=== PATIENT | male | born 1990 | race Caucasian/White ===

== ENCOUNTER 2017-07-17 09:41 | Emergency (ER) | payer BC, SELFPAY | END 2017-07-17 11:46 | disposition home or self-care (01) | PROVIDERS: Emergency Provider Nurse Practitioner Family; Family Provider Family Medicine; Visit Provider Nurse Practitioner Family | DX: A08.4 Viral intestinal infection, unspecified (principal) | CPT/HCPCS: 96372; 99201 ==

== ENCOUNTER 2022-01-09 09:15 | Emergency (ER) | payer OTHER, SELFPAY ==
[2022-01-09 09:30] VITALS: BP 164/80; PULSE 72; RESP 18; TEMP 36.8; O2SAT 99; BMI 28.8
--- NOTE | 2022-01-09 09:48 | HMH.EDUTC ---
[facility] [place] Disposition Clinical Impression: Need for Tdap vaccination Laceration of left knee Qualifiers: Encounter type: initial encounter Qualified Code(s): S81.012A - Laceration without foreign body, left knee, initial encounter Disposition: Home, Self-Care Condition on Discharge: Good Instructions: How to Care for a Laceration After Repair, DI for Laceration Repair, DI for Laceration Repair -- Simple Additional Instructions: Keep the wound clean and dry. Keep a dressing on it if you are going to be getting it dirty. Watch the for signs of infection, such as redness, swelling, drainage, fever. etc. Take the keflex antibiotics as presribed. Take tylenol or ibuprofen for pain. Follow up with your regular doctor. Return in 7 to 10 days to have the sutures removed. GO TO THE ER FOR ANY WORSENING SYMPTOMS OR CONCERNS. Prescriptions: cephALEXin [cephALEXin 500mg capsule] 500 mg PO Q6H 10 Days #40 cap Transmission Status: Received by [facility] Referrals: Lorene Gómez MD [Primary Care Provider] - Forms: Work/School Release Time of Disposition: 10:18 Medical Decision Making - Medical Records Medical records reviewed: No: I reviewed the patient's medical records. - Stephon Inquiry Pt receiving controlled substance: No Vital Signs: 01/09/22 09:30 01/09/22 10:27 Temperature 98.3 F 98.3 F Temperature Source Oral Pulse Rate 72 Pulse Rate [Left Radial] 72 Respiratory Rate 18 18 Blood Pressure 164/80 H Blood Pressure [Right Arm] 164/80 H Blood Pressure Mean [Right Arm] 108 02 Sat by Pulse Oximetry 99 [facility] [place] HPI - General Stated complaint: [id number] lac to left leg Time Seen by Provider: 01/09/22 09:49 Description of Symptoms (Recalled from Triage Doc. by RN): patient comes in with a laceration to the left knee. patient cut it on a instrument lens grinder at work. HEENT Symptoms (Recalled from RN notes): No Resp Symptoms (Recalled from RN notes): No Skin Symptoms (Recalled from RN notes): Yes MS Symptoms (Recalled from RN notes): No Functional Status (Recalled from RN notes): wnl - History of Present Illness Provider Complaint: he was at work around 45 minutes ago when he slipped with a instrument lens grinder and injured the skin on his left knee. He denies any difficulty bending and straightening the knee. He denies any other injury. His tetanus immunization is not up to date. - Related Data Previous Rx's Medication Instructions Recorded cephALEXin [cephALEXin 500mg 500 mg PO Q6H 10 Days #40 cap 01/09/22 capsule] Allergies Allergy/AdvReac Type Severity Reaction Status Date / Time No Known Allergies Allergy Unverified 07/08/17 15:06 - Worker's Comp Is this a Worker's Comp case?: No [facility] History - Hepatitis A Screen Attestation statement:: This patient has been screened for Hepatitis A risk factors. I have reviewed the patient's past medical history: Yes ROS Obtained: Yes All systems reviewed & no additional complaints - Constitutional Constitutional: Denies chills, Denies fever(s) - Musculoskeletal Musculoskeletal: Denies joint pain - Integumentary/Breasts Skin/Breast: Reports as per HPI - Neurologic Neurologic: Denies tingling/numbness/burning sensations Physical Exam - General General appearance: alert, in no apparent distress - Head Head exam: atraumatic, normocephalic, normal inspection - Eye Eye exam: Present: normal appearance, PERRL, EOMI - ENT ENT exam: Present: normal exam, normal oropharynx, mucous membranes moist, TM's normal bilaterally, normal external ear exam - Neck Neck exam: Present: normal inspection, full ROM, trachea midline. Absent: meningismus, lymphadenopathy - Chest Chest inspection: Present: normal inspection, symmetric chest wall rise. Absent: tenderness - Respiratory Respiratory exam: Present: normal lung sounds bilaterally. Absent: respiratory distress - Cardiovascular Cardiovascular exam: Present: regular rate,
[2022-01-09 10:27] VITALS: BP 164/80; PULSE 72; RESP 18; TEMP 36.8
== END 2022-01-09 10:28 | disposition home or self-care (01) ==
PROVIDERS: Emergency Provider Nurse Practitioner Family; PCP Family Medicine
DX: S81.012A Laceration without foreign body, left knee, initial encounter (principal); W31.89XA Contact with other specified machinery, initial encounter; Y92.69 Other specified industrial and construction area as the place of occurrence of the external cause; Y99.0 Civilian activity done for income or pay; Z23 Encounter for immunization
CPT/HCPCS: 12002; 80307; 90471; 99213; G0463

== ENCOUNTER 2022-07-27 08:37 | Emergency (ER) | payer SELFPAY ==
[2022-07-27 08:40] VITALS: BP 133/90; PULSE 76; RESP 18; TEMP 36.6; O2SAT 98; BMI 32.0
[2022-07-27 08:59] VITALS: BP 133/90; PULSE 76; RESP 18; TEMP 36.6; O2SAT 98
--- NOTE | 2022-07-27 09:11 | EXP.UTC ---
Discharge Plan Disposition Patient Disposition: Home, Self-Care Condition: Good Referrals Follow up/Referrals: Lorene Gómez MD [Primary Care Provider] - See instructions Clinical Impressions Clinical Impression: Acute wrist pain Instructions Patient Instructions: DI for Wrist Strain [facility]charge [facility]Florentino [facility] [place] HPI General Stated complaint: LT wrist pain, no accident Mode of Arrival: Ambulatory Source of Information: Patient Limitations: No Limitations Time Seen by Provider: 07/27/22 09:11 Description of Symptoms (Recalled from Triage Doc. by RN): PATIENT C/O LEFT WRIST PAIN X 1 WEEK. NO KNOWN INJURY HEENT Symptoms (Recalled from RN notes): No Resp Symptoms (Recalled from RN notes): No Skin Symptoms (Recalled from RN notes): No MS Symptoms (Recalled from RN notes): Yes Functional Status (Recalled from RN notes): WNL History of Present Illness Provider Complaint: 31 yr old male presents for left wrist pain. 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 Related Data Allergies Allergy/AdvReac Type Severity Reaction Status Date / Time No Known Allergies Allergy Unverified 07/08/17 15:06 Worker's Comp Is this a Worker's Comp case?: No [facility] Disclaimer: The information contained in this section may have been updated after the patient was seen, as this information can be updated by other users. 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) Smoking Status: Current every day smoker alcohol intake: never current occupational status: employed Travel in the last 8 weeks: None ROS Obtained: Yes All systems reviewed & no additional complaints except as documented Constitutional Constitutional: Reports system reviewed and no additional complaints, except as documented Eyes Eyes: Reports system reviewed and no additional complaints, except as documented ENT Ears, Nose, Mouth, and Throat: Reports system reviewed and no additional complaints, except as documented Cardiovascular Cardiovascular: Reports system reviewed and no additional complaints, except as documented Respiratory Respiratory: Reports system reviewed and no additional complaints, except as documented Gastrointestinal Gastrointestingal: Reports system reviewed and no additional complaints, except as documented Musculoskeletal Musculoskeletal: Reports system reviewed and no additional complaints, except as documented, Reports as per HPI, Reports arthralgias and Reports other Integumentary/Breasts Skin/Breast: Reports system reviewed and no additional complaints, except as documented Neurologic Neurologic: Reports system reviewed and no additional complaints, except as documented Endocrine Endocrine: Reports system reviewed and no additional complaints, except as documented Hematologic/Lymphatic Henatologic/Lymphatic: Reports system reviewed and no additional complaints, except as documented Allergic/Immunologic Allergic/Immunologic: Reports system reviewed and no additional complaints, except as documented Physical Exam General General appearance: alert and in no apparent distress Head Head exam: atraumatic, normocephalic and normal inspection Eye Eye exam: Present normal appearance and PERRL ENT ENT exam: Present normal exam, normal oropharynx, mucous membranes moist, TM's normal bilaterally and normal external ear exam Neck Neck exam: Present normal inspection, full ROM and trachea midline; Absent meningismus or lymphadenopathy Chest Chest inspection: Present normal inspection and symmetric chest wall rise; Absent tenderness Respiratory Respiratory exam: Present normal lung sounds bilaterally; Absent respiratory distress Cardiovascular Cardiovascular exam: Present regular rate and normal rhythm;
--- NOTE | 2022-07-27 09:12 | XR_ITS ---
PROCEDURE INFORMATION: Exam: XR Left Wrist Exam date and time: 07/27/2022 9:15 AM Age: 31 years old Clinical indication: Pain; Wrist; Left; Additional info: Pain- no injury TECHNIQUE: Imaging protocol: Radiologic exam of the Left wrist. Views: 3 or more views. COMPARISON: No relevant prior studies available. FINDINGS: Bones/joints: Normal. Soft tissues: Normal. IMPRESSION: No acute findings.
== END 2022-07-27 09:42 | disposition home or self-care (01) ==
PROVIDERS: Emergency Provider Nurse Practitioner Family; PCP Family Medicine
DX: M25.532 Pain in left wrist (principal)
CPT/HCPCS: 73110; 99212; 99213; G0463

== ENCOUNTER 2023-02-24 09:33 | Emergency (ER) | payer BC, SELFPAY ==
[2023-02-24 09:34] VITALS: BP 134/76; PULSE 88; RESP 18; TEMP 36.8; O2SAT 98; BMI 25.9
--- NOTE | 2023-02-24 09:47 | EXP.UTC ---
Discharge Plan Disposition Patient Disposition: Home, Self-Care Condition: Good Prescriptions Prescriptions: New fluticasone propionate [Flonase Allergy Relief] 50 mcg/actuation spray,suspension 1 - 2 spray intranasal DAILY Qty: 16 0RF Rx Instructions: administer into each nostril amoxicillin 500 mg capsule 500 mg PO TID 10 Days Qty: 30 0RF Referrals Follow up/Referrals: Lorene Gómez MD [Primary Care Provider] - See instructions Activity Restrictions/Add. Instructions Additional Instructions/Restrictions: *Monitor Temp, Over the counter Motrin or Tylenol as directed/as needed Tylenol every 4 hours and Motrin every 6 hours (as long as your family doctor has told you that you can take it) for fever or pain. and straight to ER if unable to lower temp less than 101.0 after medication given *Warm salt water gargles may help to soothe the throat *Throat Lozenges? *Warm fluids like tea with honey may help to soothe the throat? *Sleep elevated *Humidifier/Vaporizer *If you did not take Penicillin shot or was unable to, start taking antibiotic immediately and make sure that you take it for the FULL length of time although you should start to feel better in 24-48 hours *change toothbrush and toothpaste 24-48 hours after starting to take antibiotics so you do not reinfect yourself Monitor Temp. Tylenol and/or Ibuprofen as needed. ER if fever is no less than 101 despite alternating Tylenol and Ibuprofen * Encourage fluids, water, Gatorade, powerade, pedialyte if /toddler/or child *Cold fluids, popsicles and ice cream may feel good on his throat Follow up IMMEDIATELY for new or worsening symptoms or no Noticeable improvement over the next 48-72 hours. 911 for difficulty breathing or swallowing Clinical Impressions Clinical Impression: Strep throat Stand Alone Forms Stand Alone Forms: Work/School Release Instructions Patient Instructions: Strep Throat, Middle Ear Infection, DI for Strep Throat Discharge ED Provider[place] Alysha [place] [facility] [place] General Stated complaint: fever, body aches, runny nose Mode of Arrival: Ambulatory Source of Information: Patient Limitations: No Limitations Time Seen by Provider: 08/07/23 09:47 Description of Symptoms (Recalled from Triage Doc. by RN): Patient reports body aches, runny nose and fever since yesterday morning. HEENT Symptoms (Recalled from RN notes): Yes Resp Symptoms (Recalled from RN notes): No Skin Symptoms (Recalled from RN notes): No MS Symptoms (Recalled from RN notes): No Functional Status (Recalled from RN notes): wnl History of Present Illness Provider Complaint: Patient states that he woke up yesterday with sore throat, headache, fever, chills and body aches States that he was barely able to swallow last night then when he got up this morning he was still feeling bad but throat wasnt hurting as bad but still not feeling well so he came in to get checked Related Data Previous Rx's Medication Instructions Recorded amoxicillin 500 mg capsule 500 mg PO TID 10 days #30 caps 02/24/23 fluticasone propionate 50 1 - 2 spray intranasal DAILY #16 02/24/23 mcg/actuation nasal grams spray,suspension (Flonase Allergy Relief) Allergies Allergy/AdvReac Type Severity Reaction Status Date / Time No Known Allergies Allergy Unverified 07/08/17 15:06 Worker's Comp Is this a Worker's Comp case?: No [facility] Disclaimer: The information contained in this section may have been updated after the patient was seen, as this information can be updated by other users. 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
[2023-02-24 09:51] LABS: UTC Strep Screen (Rapid) Positive (Negative)
[2023-02-24 09:52] LABS: UTC Influenza A Antigen Negative (Negative); UTC Influenza B Antigen Negative (Negative)
[2023-02-24 09:58] VITALS: BP 134/76; PULSE 88; RESP 18; TEMP 36.8; O2SAT 98
== END 2023-02-24 09:59 | disposition home or self-care (01) ==
PROVIDERS: Emergency Provider Nurse Practitioner; PCP Family Medicine
DX: J02.0 Streptococcal pharyngitis (principal); R50.9 Fever, unspecified; R51.9 Headache, unspecified; F17.210 Nicotine dependence, cigarettes, uncomplicated
CPT/HCPCS: 87804; 87880; 99212; 99214; G0463

== ENCOUNTER 2023-06-02 09:15 | Emergency (ER) | payer SELFPAY ==
[2023-06-02 09:25] VITALS: BP 132/79; PULSE 82; RESP 18; TEMP 36.8; O2SAT 100; BMI 25.9
--- NOTE | 2023-06-02 09:27 | EXP.UTC ---
Discharge Plan Disposition Patient Disposition: Home, Self-Care Condition: Good Prescriptions Prescriptions: New cephalexin 500 mg capsule 500 mg PO QID Qty: 40 0RF Referrals Follow up/Referrals: Lorene Gómez MD [Primary Care Provider] - See instructions Activity Restrictions/Add. Instructions Additional Instructions/Restrictions: Keep the wound clean and dry. Keep a dressing on it if you are going to be getting it dirty. Watch the wound for signs of infection, such as redness, swelling, drainage, fever. etc. Take tylenol or ibuprofen for pain. Follow up with your regular doctor. GO TO THE ER FOR ANY WORSENING SYMPTOMS OR CONCERNS. Clinical Impressions Clinical Impression: Laceration of left hand Stand Alone Forms Stand Alone Forms: Work/School Release Instructions Patient Instructions: DI for Laceration Repair-Skin Glue, Cephalexin [place]charge ED Provider[place] Haim Mares [facility] [place] General Stated complaint: AO06/01, lac in between fingers on Lt hand Time Seen by Provider: 06/02/23 09:27 History of Present Illness Provider Complaint: He states that he slipped with a knife last night and cut his left hand between his middle and ring finger. His tetanus immunization is up to date. Related Data Previous Rx's Medication Instructions Recorded cephalexin 500 mg capsule 500 mg PO QID #40 caps 06/02/23 Allergies Allergy/AdvReac Type Severity Reaction Status Date / Time No Known Allergies Allergy Verified 06/02/23 09:35 [facility] Disclaimer: The information contained in this section may have been updated after the patient was seen, as this information can be updated by other users. 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 Social History Smoking Status: Current every day smoker alcohol intake: never current occupational status: employed Travel in the last 8 weeks: None ROS Obtained: Yes All systems reviewed & no additional complaints except as documented Constitutional Constitutional: Denies chills and Denies fever(s) Eyes Eyes: Denies eye discharge ENT Ears, Nose, Mouth, and Throat: Denies dizziness, Denies otalgia and Denies sore throat Cardiovascular Cardiovascular: Denies chest pain Respiratory Respiratory: Denies shortness of breath, Denies chest congestion, Denies cough, Denies stridor and Denies wheezing Gastrointestinal Gastrointestingal: Denies nausea or vomiting Musculoskeletal Musculoskeletal: Reports system reviewed and no additional complaints, except as documented and Denies arthralgias Integumentary/Breasts Skin/Breast: Reports as per HPI Neurologic Neurologic: Denies dizziness and Denies paresthesias Allergic/Immunologic Allergic/Immunologic: Denies wheezing Physical Exam General General appearance: alert and in no apparent distress Head Head exam: atraumatic, normocephalic and normal inspection Eye Eye exam: Present normal appearance, PERRL and EOMI ENT ENT exam: Present normal exam, normal oropharynx, mucous membranes moist, TM's normal bilaterally and normal external ear exam Neck Neck exam: Present normal inspection, full ROM and trachea midline; Absent meningismus or lymphadenopathy Chest Chest inspection: Present normal inspection and symmetric chest wall rise; Absent tenderness Respiratory Respiratory exam: Present normal lung sounds bilaterally; Absent respiratory distress Cardiovascular Cardiovascular exam: Present regular rate and normal rhythm; Absent JVD Abdominal Exam Abdominal exam: Present soft and normal bowel sounds; Absent distention, tenderness or guarding Extremities Exam Extremities exam: Present normal inspection, full ROM and normal capillary refill; Absent calf tenderness Back Exam Back exam: Present normal inspection; Absent tenderness Neurological Exam Neurological exam: Present alert and oriented
--- NOTE | 2023-06-02 10:30 | PC.NURSE ---
Pt stated that he received a tetanus shot last year.
[2023-06-02 10:42] VITALS: BP 132/79; PULSE 82; RESP 18; TEMP 36.8; O2SAT 100
== END 2023-06-02 10:42 | disposition home or self-care (01) ==
PROVIDERS: Emergency Provider Nurse Practitioner Family; PCP Family Medicine
DX: S61.412A Laceration without foreign body of left hand, initial encounter (principal); F17.210 Nicotine dependence, cigarettes, uncomplicated; W26.0XXA Contact with knife, initial encounter
CPT/HCPCS: 12001; 99213; 99214; G0463

== ENCOUNTER 2024-07-04 11:15 | Emergency (ER) | payer BC, SELFPAY ==
--- NOTE | 2024-07-04 12:32 | ED_ITS ---
Discharge Plan Disposition Patient Disposition: Home, Self-Care Condition: Good Prescriptions Prescriptions: New azithromycin [Zithromax] 250 mg tablet 250 mg PO UD DOSE PK Qty: 6 0RF Rx Instructions: Take two (2) tablets today, then one (1) tablet days #2 thru #5 methylprednisolone 4 mg Tablets,Dose Pack 4 mg PO DIRECTED 6 Days Qty: 21 0RF Rx Instructions: Take 1 pack as directed for 6 days [id number] [Bromfed DM] 2-30-10 mg/5 mL Syrup 5 ml PO Q6H PRN (Reason: Cough) Qty: 240 0RF Referrals Follow up/Referrals: Provider,Referral, MD [Primary Care Provider] - See instructions Activity Restrictions/Add. Instructions Additional Instructions/Restrictions: Drink plenty of fluids. Take tylenol or ibuprofen for pain or fever. Take the medications as directed. Follow up with your regular doctor. GO TO THE ER FOR ANY WORSENING SYMPTOMS Clinical Impressions Clinical Impression: Acute bronchitis Stand Alone Forms Stand Alone Forms: Work/School Release Instructions Patient Instructions: Acute Bronchitis, DI for Acute Bronchitis Print Language Print Language: Guinean Discharge ED Provider: Haim Mares [facility] [place] General Stated complaint: fever, body aches, cough Time Seen by Provider: 07/04/24 12:32 Related Data Previous Rx's ?Medication ?Instructions ?Recorded azithromycin 250 mg tablet 250 mg PO UD DOSE PK #6 tabs 07/04/24 (Zithromax) ouidyexzhhasdng-rczbiajjskgrfiq-DY 5 ml PO Q6H PRN Cough #240 mL 07/04/24 2 mg-30 mg-10 mg/5 mL oral syrup (Bromfed DM) methylprednisolone 4 mg tablets in 4 mg PO DIRECTED 6 days #21 tabs 07/04/24 a dose pack Allergies Allergy/AdvReac Type Severity Reaction Status Date / Time No Known Allergies Allergy Verified 06/02/23 09:35 [facility] Disclaimer: The information contained in this section may have been updated after the patient was seen, as this information can be updated by other users. 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 (Reviewed 07/27/22 @ 09:12 by Florentino Oakley ([facility] PSYCHIATRIC CNS) No significant past medical history Social History Smoking Status: Current every day smoker alcohol intake: never current occupational status: employed Travel in the last 8 weeks: None Have you lived/traveled outside US in past 30 days?: No Contact w/someone who lives/traveled outside US past 30 days?: No Exposure to someone with infectious disease in past 14 days?: No Do you have a fever (greater than 100.4 F or 38 C)?: Yes Have you tested positive for COVID-19: No Exposed to someone with COVID-19 in past 14 days?: No Do you have a sore throat?: No Do you have a cough?: No Do you have any weakness?: No Do you have any diarrhea?: No Are you experiencing any unusual bleeding?: No Do you have any muscle aches/pain?: Yes Do you have any abdominal pain?: No Are you experiencing loss of taste or smell?: No ROS Obtained: Yes All systems reviewed & no additional complaints except as documented Constitutional Constitutional: Denies chills and Denies fever(s) Eyes Eyes: Denies eye discharge ENT Ears, Nose, Mouth, and Throat: Denies dizziness, Denies otalgia and Denies sore throat Cardiovascular Cardiovascular: Denies chest pain Respiratory Respiratory: Denies shortness of breath, Reports chest congestion, Denies cough, Denies stridor and Denies wheezing Gastrointestinal Gastrointestingal: Denies nausea or vomiting Musculoskeletal Musculoskeletal: Reports system reviewed and no additional complaints, except as documented and Denies arthralgias Integumentary/Breasts Skin/Breast: Denies rash Neurologic Neurologic: Denies dizziness and Denies paresthesias Allergic/Immunologic Allergic/Immunologic: Denies wheezing Physical Exam General General appearance: alert and in no apparent distress Head Head exam: atraumatic, normocephalic and normal inspection Eye Eye exam: Present normal appearance, PERRL and EOMI ENT ENT exam: Present normal exam, normal oropharynx, mucous membranes moist, TM's normal bilaterally and normal external ear exam Neck Neck exam: Present normal inspection, full ROM and trachea midline; Absent meningismus or lymphadenopathy Chest Chest inspection: Present normal inspection and symmetric chest wall rise; Absent tenderness Respiratory Respiratory exam: Present normal lung sounds bilaterally; Absent respiratory distress Cardiovascular Cardiovascular exam: Present regular rate and normal rhythm; Absent JVD Abdominal Exam Abdominal exam: Present soft and normal bowel sounds; Absent distention, tenderness or guarding Extremities Exam Extremities exam: Present normal inspection, full ROM and normal capillary refill; Absent calf tenderness Back Exam Back exam: Present normal inspection; Absent tenderness Neurological Exam Neurological exam: Present alert and oriented X3 Psychiatric Psychiatric exam: Present normal affect and normal mood Skin Skin exam: Present warm, dry, intact and normal color Lymphatic Lymphatic Findings: no adenopathy Medical Decision Making Medical Records Medical records reviewed: No I reviewed the patient's medical records. Screening: Per USPSTF and CDC recommendations, given the prevalence of disease in our region, it is our hospital?s policy to screen for HIV and viral Hepatitis for all patients aged 18 and over and those with ongoing risk factors. Stephon Inquiry Pt receiving controlled substance: No
[2024-07-04 12:34] VITALS: BP 136/78; PULSE 80; RESP 18; TEMP 37; O2SAT 97; BMI 28.8
[2024-07-04 12:40] LABS: UTC Influenza A Antigen Negative (Negative)
[2024-07-04 12:41] LABS: UTC Influenza B Antigen Negative (Negative)
[2024-07-04 13:07] VITALS: BP 136/78; PULSE 80; RESP 18; TEMP 37
== END 2024-07-04 13:07 | disposition home or self-care (01) ==
PROVIDERS: Emergency Provider Nurse Practitioner Family
DX: J20.9 Acute bronchitis, unspecified (principal); R50.9 Fever, unspecified; R05.9 Cough, unspecified
CPT/HCPCS: 87804; 99212; G0381